=== PATIENT | female | born 1975 | race Caucasian/White ===

== ENCOUNTER → 2016-11-02 | Outpatient (CLI) | payer BC ==
--- NOTE | ~2016-11-02 | CR181 ---
[facility] A Service of [facility] RADIOLOGY TEXT RESULTS PATIENT: ELLEN STARKEY LOCATION: [facility] : 79 UNIT #: [id number] AGE: [address]: Josey Onofre MD SEX: F ORDER DR: [id number] [facility] [address] [place], [place] [address] [id number] O MR#: [id number] Acc #: [id number] NAME: ELLEN STARKEY : 1975 SEX: F STUDY DATE/TIME: 11/02/2016 10:59 UNIT: [facility] ROOM: STUDY DESCRIPTION: CR Lumbar Spine 2 or 3 Views Attending Physician: Josey Onofre M.D. Referring Physician: Josey Onofre M.D. Ordering Physician: Josey Onofre M.D. Primary Care Physician: Josey Onofre M.D. MEDICAL IMAGING REPORT This report is preliminary unless electronic signature is present EXAM Lumbar spine 3 views, 11/02/2016 HISTORY Low back pain beginning September 2016. No known injury. FINDINGS Three views of the lumbar spine demonstrate no fracture. The posterior vertebral body line is intact and there is no anterolisthesis or retrolisthesis. The disc spaces are normally maintained. Small anterior osteophytes are seen from L2-L5. IMPRESSION Degenerative change with small anterior osteophytes from L2-L5. Otherwise negative lumbar spine. No acute abnormality. Dictated by... Carlos Eduardo Hutson M.D. THIS IS AN ELECTRONICALLY VERIFIED REPORT Carlos Eduardo Hutson M.D. at 11/03/2016 8:01 AM ADELINA/vaughn TD: 11/02/2016 14:38 JOB #: [id number] MEDICAL IMAGING REPORT Page 1 of 1 COPY
== END | disposition home or self-care (01) ==
LOC: CRAD 10:23
DX: M54.5 Low back pain (principal); M47.896 Other spondylosis, lumbar region; M25.78 Osteophyte, vertebrae
CPT/HCPCS: 72100